=== PATIENT | male | born 1955 | race Caucasian/White ===

== ENCOUNTER → 2018-05-12 | Outpatient (CLI) | payer BC, OTHER ==
--- NOTE | 2018-05-12 12:00 | ECHOS ---
STRESS ECHOCARDIOGRAM INDICATIONS: Abnormal EKG. MEDICATIONS: No medications. BASELINE HEART RATE: 63 BASELINE BLOOD PRESSURE: 131/60 MAXIMUM HEART RATE: 139 MAXIMUM BLOOD PRESSURE: 210/57 85% MPHR: 136 100% MPHR: 160 METS: 12.1 MAXIMUM STAGE REACHED: 4 TOTAL EXERCISE TIME: 12:00 CLINICAL INFORMATION: Patient was exercised for a total period of 12 minutes. The peak heart rate of 139 was achieved. Maximum blood pressure of 210/57 mmHg was noted. Resting EKG shows normal sinus rhythm with normal MI interval and QRS duration and normal ST-T waves. No ST- segment depression suggestive of ischemia is noted. Occasional PVCs are noted. The baseline echocardiographic images reveal normal left ventricular chamber size with normal left ventricular systolic function in the immediate post exercise period. Normal increase in the wall thickness and contractility is noted. FINAL IMPRESSION: 1. This stress echocardiographic study is negative for stress-induced ischemia. 2. EKG portion of the stress test is not suggestive of ischemia. 3. Occasional premature ventricular contractions were noted. MMODL / IJN: [id number] /
--- NOTE | 2018-05-13 10:56 | ECHOF ---
Referral Reason:R94.31 Abn EKG, Hypertension I10 MEASUREMENTS -------- HEIGHT: 182.9 cm WEIGHT: 87.1 kg BP: RVIDd: 2.7 cm (< 3.3) IVSd: 1.2 cm (0.6 - 1.1) LVIDd: 4.7 cm (3.9 - 5.3) LVPWd: 0.8 cm (0.6 - 1.1) IVSs: 1.6 cm LVIDs: 3.5 cm LVPWs: 1.2 cm LA Diam: 2.8 cm (2.7 - 3.8) LAESV Index (A-L): 19.96 ml/m Ao Diam: 3.4 cm (2.0 - 3.7) AV Cusp: 1.7 cm (1.5 - 2.6) LA Diam: 3.3 cm (2.7 - 3.8) MV EXCURSION: 22.451 mm (> 18.000) MV EF SLOPE: 116 mm/s (70 - 150) EPSS: 0.3 cm MV E Esteban: 0.57 m/s MV DecT: 223 ms MV A Esteban: 0.62 m/s MV E/A Ratio: 0.92 RAP: 5.00 mmHg RVSP: 25.94 mmHg FINDINGS -------- Sinus rhythm. This was a technically good study. The left ventricular size is normal. There is borderline concentric left ventricular hypertrophy. Overall left ventricular systolic function is normal with, an EF between 55 - 60 %. The right ventricle is normal in size. The left atrial size is normal. Normal LA size by volume 22+/-6 ml/m2. The right atrial size is normal. The aortic valve is trileaflet, and appears structurally normal. No aortic stenosis or regurgitation. Mild mitral regurgitation is present. Mild tricuspid regurgitation present. There is no evidence of pulmonary hypertension. The right v entricular systolic pressure, as measured by Doppler, is 25.94mmHg. There is no pulmonic regurgitation present. The aortic root size is normal. There is no pericardial effusion. CONCLUSIONS -------- 1. The left ventricular size is normal. 2. There is borderline concentric left ventricular hypertrophy. 3. Overall left ventricular systolic function is normal with, an EF between 55 - 60 %. 4. The right ventricle is normal in size. 5. The left atrial size is normal. 6. The right atrial size is normal. 7. The aortic valve is trileaflet, and appears structurally normal. No aortic stenosis or regurgitati on. 8. Mild mitral regurgitation is present. 9. Mild tricuspid regurgitation present. 10. There is no evidence of pulmonary hypertension. 11. The right ventricular systolic pressure, as measured by Doppler, is 25.94mmHg. 12. There is no pulmonic regurgitation present. 13. The aortic root size is normal. 14. There is no pericardial effusion. RIDING DOUBLE: Sol Jose RDCS
== END | disposition home or self-care (01) ==
LOC: RADNMMAIN 09:41
PROVIDERS: ATTEND Family Medicine
DX: I08.1 Rheumatic disorders of both mitral and tricuspid valves (principal); I11.9 Hypertensive heart disease without heart failure; R94.31 Abnormal electrocardiogram [ECG] [EKG]
CPT/HCPCS: 93306; 93351

== ENCOUNTER 2020-11-26 07:49 | Day surgery (SDC) | payer OTHER ==
[2020-11-21 10:02] VITALS: BMI 26.7
--- NOTE | 2020-11-26 07:42 | P.GSHP ---
History of Present Illness H&P Date: 11/26/20 CHIEF COMPLAINT: Colon screen HISTORY OF PRESENT ILLNESS: The patient is a 65-year-old male who presents for colon screen. Lower endoscopy was offered for further evaluation and management. PAST MEDICAL HISTORY: Please see list. PAST SURGICAL HISTORY: Please see list. MEDICATIONS: Please see list. ALLERGIES: Please see list. SOCIAL HISTORY: No illicit drug use FAMILY HISTORY: No reports of Crohn disease or ulcerative colitis. REVIEW OF ORGAN SYSTEMS: CONSTITUTIONAL: No reports of fevers or chills. PHYSICAL EXAM: VITAL SIGNS: Stable GENERAL: Well-developed pleasant in no acute distress. HEENT: No scleral icterus. Extraocular movements grossly intact. Moist buccal mucosa. NECK: Supple without lymphadenopathy. CHEST: Unlabored respirations. Equal bilateral excursions. CARDIOVASCULAR: Regular rate and rhythm. Distal 2+ pulses. ABDOMEN: Soft, nontender, nondistended. MUSCULOSKELETAL: No clubbing, cyanosis, or edema. ASSESSMENT: 1. Colon screen. PLAN: 1. Recommend proceeding with a lower endoscopy Past Medical History Past Medical History: Thyroid Disorder Additional Past Medical History / Comment(s): hx of colon polyps History of Any Multi-Drug Resistant Organisms: None Reported Past Surgical History: Orthopedic Surgery Additional Past Surgical History / Comment(s): rt shoulder Past Anesthesia/Blood Transfusion Reactions: No Reported Reaction Smoking Status: Former smoker Medications and Allergies Home Medications Medication Instructions Recorded Confirmed Type Levothyroxine Sodium [Synthroid] 75 mcg PO DAILY 11/21/20 11/21/20 History Allergies Allergy/AdvReac Type Severity Reaction Status Date / Time No Known Allergies Allergy Verified 11/21/20 10:02
[~2020-11-26 07:49] MED LIST: LACTATED RINGERS 1,000 ML IV SCH
[2020-11-26 08:19] VITALS: TEMP 97
[2020-11-26] MEDS ORDERED: LIDOCAINE 1% (10MG/ML) FOR IV START INTRADERMA ONE (08:20)
[2020-11-26] MEDS ORDERED: PROPOFOL 10 MG/ML 20 ML VIAL IV ONE (08:59)
--- NOTE | 2020-11-26 09:35 | P.PCN ---
Date of Procedure: 11/26/20 Description of Procedure: PREOPERATIVE DIAGNOSIS: Personal history of colon polyps Colonoscopy screening POSTOPERATIVE DIAGNOSIS: Personal history of colon polyps Sigmoid diverticulosis Colon polyp, descending colon OPERATION: Colonoscopy to the ileocecal valve and appendiceal orifice, cecum Colonoscopy with cold forceps biopsy SURGEON: Radha Genao MD. ANESTHESIA: MAC. INDICATIONS: The patient is an 65-year-old male who presents personal history of colon polyps. Last colonoscopy 5 years. Benefits and risks were described and informed consent was obtained. DESCRIPTION OF PROCEDURE: The patient had undergone Suprep. The patient had been brought into the operating room and laid in the left lateral decubitus position. After adequate intravenous sedation, the rectum was examined with 2% lidocaine jelly. The prostate was unremarkable. No external hemorrhoids were encountered. The rectal tone was within normal limits. No lesions were palpated in the rectal vault. An Olympus colonoscope was advanced until the cecum, ileocecal valve and appendiceal orifice were clearly viewed. The prep was excellent. Sigmoid diverticulosis was encountered. Colonic polyps were found and removed. No evidence of focal colitis was found. Retroflexion of the scope demonstrated grade 2 internal hemorrhoids without active bleeding or inflammation. The colon was desufflated. The patient had tolerated the procedure well. Withdrawal time was over 6 minutes. FINDINGS: Aronchick preparation quality scale 1 (1-5) Internal hemorrhoids, grade 1 No external hemorrhoids No arteriovenous malformations. Sigmoid diverticulosis, moderate Removal of 1 polyp: - Cold forceps biopsy at 45 cm from the anal verge, 4 mm polyp. No focal colitis. RECOMMENDATIONS: Repeat colonoscopy 2025 Plan - Discharge Summary Discharge Rx Participant: No New Discharge Prescriptions: Continue Levothyroxine Sodium [Synthroid] 75 mcg PO DAILY Discharge Medication List Levothyroxine Sodium [Synthroid] 75 mcg PO DAILY 11/21/20 [History] Follow up Appointment(s)/Referral(s): Radha Genao MD [STAFF PHYSICIAN] - As Needed Patient Instructions/Handouts: Diverticulosis Diet (GEN), Diverticulosis (GEN) Activity/Diet/Wound Care/Special Instructions: A colonoscopy 2025 Discharge Disposition: HOME SELF-CARE
[2020-11-26] MEDS ORDERED: LABETALOL 5 MG/ML VIAL MDV IVP ONE (11:18)
[2020-11-26] MEDS ORDERED: LACTATED RINGERS 1,000 ML IV ONE (11:21)
[2020-11-26 12:06] VITALS: BP 187/77; PULSE 77; RESP 18
== END 2020-11-26 12:17 | disposition home or self-care (01) ==
LOC: ORWHC2ENDO 07:49
PROVIDERS: ATTEND Surgery Plastic and Reconstructive Surgery
DX: Z12.11 Encounter for screening for malignant neoplasm of colon (principal); K57.30 Diverticulosis of large intestine without perforation or abscess without bleeding; K63.5 Polyp of colon; K64.1 Second degree hemorrhoids; E03.9 Hypothyroidism, unspecified; F17.200 Nicotine dependence, unspecified, uncomplicated; Z79.890 Hormone replacement therapy; Z86.010 Personal history of colon polyps
CPT/HCPCS: 88305; 45380; J2704

== ENCOUNTER → 2021-12-28 | Outpatient (CLI) | payer OTHER ==
--- NOTE | 2021-12-29 19:14 | CA ---
Stress Echo Report William Aguayo Age: 66 Gender: M : 1955 Exam Date: 12/28/2021 10:07 Exam Location: [facility] Ht (in): 67 Wt (lb): 204 Ordering Physician: Jean Pierre Garrido MD Referring Physician: Hema TORRES Violent Crimes Detective: STU Technologist Procedure CPT: Indication: R03.0 ELEVATED BP WITHOUT DIAGNOSIS OF HTN ICD-9 Codes: Rhythm: Patient History: FAMILY HX Cardiac Medications: Medications in past 24 hours: Contrast: Stress Results Protocol: Cyril Total dose(mL): Exercise Duration (min:sec): [address] Depression (mm): Angina Score: Tracy Score: METS: 11.1 Resting HR: 57 Resting BP: 130 / 64 Peak HR: 135 Peak BP: 219 / 73 Max Predicted HR: 156 87 % Max Predicted HR Target HR: 133 Double Product: [id number] Stress Summary: BP Response: VT. Cardiac Symptoms: ECG Analysis Resting ECG: Stress ECG: Arrhythmia: Echo Analysis Resting Echo: Peak Echo Analysis: MEASUREMENTS (Male/Female) Normal Values CONCLUSIONS Baseline heart rate 40 beats a minute, Baseline blood pressure 130/64 mmHg Baseline 20 EKG shows sinus rhythm with normal ST segments Patient exercised on a Cyril protocol for 10 minutes achieving a peak heart rate of 113 beats a minute Hypertensive response to exercise, peak blood pressure 219/73 mmHg 0.5-[address] depression Occasional ventricular couplets and triplets and occasional PVCs with exercise Baseline 2-D echo showed normal LV systolic function without segmental wall motion abnormalities At peak exercise there was excellent augmentation of oral LV contractility without development of any wall motion abnormalities At the recovery, regional and global LV systolic function remained normal Impression Good exercise capacity on a Cyril protocol No ECG or echocardiographic evidence of ischemia Occasional PVCs ventricular couplets and triplets. Exercise Dr. Griffin James MD (Electronically Signed) Final Date: 29 Dec 2021 19:13
== END | disposition home or self-care (01) ==
LOC: RADNMMAIN 09:46
PROVIDERS: ATTEND Family Medicine
DX: I49.3 Ventricular premature depolarization (principal)
CPT/HCPCS: 93351

== ENCOUNTER → 2022-12-01 | Outpatient (CLI) | payer MEDICARE ==
--- NOTE | 2022-12-01 07:34 | US ---
EXAMINATION TYPE: [place] medicare screen for AAA DATE OF EXAM: 12/01/2022 COMPARISON: NONE CLINICAL HISTORY: Z13.6 SCREENING FOR CARDIOVAS DISORDER. TECHNIQUE: Multiple sonographic images of the abdominal aorta are obtained. FINDINGS: EXAM MEASUREMENTS: Abdominal Aorta: Proximal: not visualized due to bowel gas Mid: 1.9 x 1.8 cm Distal: 1.7 x 1.7 cm Bifurcation: right 1.1 x 1.5 cm left, 1.3 x 1.8 cm PAINTER AND BODY MECHANIC APPRENTICE NOTES: Exam somewhat limited due to midline bowel gas. Aorta not visualized proximally, otherwise wnl. IMPRESSION: Suboptimal study, visualized portion of the abdominal aorta shows no greater than 3.0 cm AAA.
== END | disposition home or self-care (01) ==
LOC: RADUSWWP 06:46
PROVIDERS: ATTEND Family Medicine
DX: Z13.6 Encounter for screening for cardiovascular disorders (principal)
CPT/HCPCS: 76706

== ENCOUNTER → 2025-03-20 | Outpatient (CLI) | payer MEDICARE ==
--- NOTE | 2025-03-21 18:21 | MR ---
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 Specialized thin s equences were obtained through the internal auditory canals. Pre-and post gadolinium sequences were obtained as well after administration of contrast. FINDINGS: Mild age-appropriate cerebral volume loss. The montalvo-white junctions, ventricular system, ba verito cisterns appear unremarkable. Diffusion-weighted imaging shows no evidence of restricted diffusio n to suggest acute/subacute infarct. Intracranial arterial flow voids are maintained. Midline structu res show no abnormality. Patchy areas of high T2/FLAIR signal intensity are seen within the periventr icular and subcortical white matter. The susceptibility weighted images do not reveal any evidence fo r micro-hemorrhage. Incidental developmental venous anomaly within the left parietal lobe with promin ent draining vein. After administration of gadolinium, no abnormal enhancement is seen. The bone marrow signal is within normal limits. The globes are unremarkable. Mild coastal thickening ethmoid sinuses. Mucous retention cysts within the inferior right maxillary sinus with largest measu ring up to 2 cm. The internal auditory canal sequences demonstrate no significant irregularity. The 7th cranial nerve s, 8 cranial nerves, and cerebellar pontine angles appear unremarkable. After the administration мария olinium, no abnormal enhancement is seen within the internal auditory canals. IMPRESSION: 1. No evidence of intracranial mass nor acute/subacute CVA. 2. No evidence of internal auditory canal abnormality. 3. Mild nonspecific white matter changes likely related to chronic small vessel ischemic disease. 4. 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 [facility], , 03/21/2025 6:19 PM
== END | disposition home or self-care (01) ==
LOC: RADMRIMAIN 19:01
PROVIDERS: ATTEND Otolaryngology
DX: D33.3 Benign neoplasm of cranial nerves (principal); R90.82 White matter disease, unspecified
CPT/HCPCS: 70553; A9585